=== PATIENT | male | born 1940 | race Caucasian/White ===

== ENCOUNTER 2017-04-23 13:35 | Outpatient (CLI) | payer MEDICARE, OTHER ==
[2017-04-23 14:04] LABS: APPEARANCE,URINE Clear (CLEAR); COLOR,URINE Yellow (YELLOW); OCCULT BLOOD,URINE Negative (NEGATIVE); PH URINE 5.5 (5.0 - 8.0)
[2017-04-23 14:47] LABS: eGFR (African) > 60; eGFR (Non-African) > 60
== END 2017-04-23 13:40 ==
LOC: LAB 13:35
PROVIDERS: ATTEND Family Medicine
DX: I10 Essential (primary) hypertension (principal)
CPT/HCPCS: 36415; 80048; 81002

== ENCOUNTER 2018-02-23 10:24 | Day surgery (SDC) | payer MEDICARE, OTHER ==
[~2018-02-23 10:24] MED LIST: LACTATED RINGERS 1,000 ML IV.SOLN IV ONE; LIDOCAINE HCL/PF 2% 100 MG/5 ML VIAL IJ ONE; PROPOFOL 500 MG/50 ML VIAL IV ONE; SALINE FLUSH 10 ML DISP.SYRIN IVF ONE
--- NOTE | 2018-02-24 14:33 | GI Report ---
REFERRING PHYSICIAN: Dr. Karma Mathew ENVIRONMENTAL SERVICES AIDE: Enmanuel Mancuso MD PROCEDURE MEDICATION: Propofol as per anesthesia. INDICATIONS: Patient is a 77-year-old man who is referred for his first screening colonoscopy. Brother had colon cancer. Patient denies any change in bowel habits or bleeding. He has been stable cardiopulmonary alejandre. He does have hypertension. PROCEDURE PERFORMED: Colonoscopy. PROCEDURE: An Olympus video colonoscope was advanced to the rectum and advanced all the way to the cecum. The appendiceal orifice and terminal ileum were normal. On slow withdrawal, the cecum, ascending colon, and transverse colon with no obvious intraluminal lesions noted. The descending colon and sigmoid with some redundancy, but no obvious intraluminal lesions were noted. Retroflexion of the rectum was normal. Patient tolerated the procedure well. FINDINGS: Normal mucosa to the cecum. RECOMMENDATIONS: 1. A high-fiber diet. 2. With a family history of a first-degree relative with colon cancer, consider re-looking at his colon in 5 years. cc: Dr. Karma MILLER
== END 2018-02-23 10:25 ==
LOC: OPSURG 10:24
PROVIDERS: ATTEND Internal Medicine Gastroenterology
DX: Z12.11 Encounter for screening for malignant neoplasm of colon (principal); Z80.0 Family history of malignant neoplasm of digestive organs; I10 Essential (primary) hypertension
CPT/HCPCS: G0105; J2001; J2704; J7120; S1016

== ENCOUNTER 2018-12-21 13:46 | Emergency (ER) | payer MEDICARE, OTHER ==
[2018-12-21] MEDS: 0.9 % SODIUM CHLORIDE 1,000 ML IV ONE ×2 (14:25→15:30)
--- NOTE | 2018-12-21 14:38 | ED Physician Documentation ---
Dizziness - HISTORIAN Historian: patient - HPI Chief Complaint: Dizziness Timing: gradual onset Severity: mild Decreased Ability to Stand/ Walk: off balance Usually: walks w/o assistance Further Comments: yes (78 year old male patient presents with complaints of dizziness. Patient reports diarrhea for the past few days, c/o vomiting x2 yesterday. No vomiting today, diarrhea x 2 today. Denies SOB or chest pain.) - ROS CONST: none EYES/ENT: none GI/: diarrhea. denies: abdominal pain, black stools LNMP: irregualar periods MS/SKIN/LYMPH: none NEURO/PSYCH: none CVS/RESP: none - PAST HX Past History: hypertension Allergies/Adverse Reactions: Allergies Allergy/AdvReac Type Severity Reaction Status Date / Time Penicillins Allergy Unknown Verified 12/21/18 14:44 Sulfa (Sulfonamide Allergy Unknown Verified 12/21/18 14:44 Antibiotics) Home Medications: Ambulatory Orders Medication Instructions Recorded Cyanocobalamin (Vitamin B-12) 1,000 mcg PO DAILY 08/10/12 [Vitamin B-12] - SOCIAL HX Smoking History: non-smoker - FAMILY HX Family History: denies: none - REVIEWED ASSESSMENTS Nursing Assessment Reviewed: Yes Vitals Reviewed: Yes Progress - Progress Progress: Dizziness resolved after IV fluids. Old records reviewed. Bradycardia noted. No previous EKG; BP stable with MAIA. ED Results Lab/Radiology - Orders Orders: ED Orders Category Date Time Status Continuous EKG monitoring Q30M Care 12/21/18 14:10 Active Continuous Pulse Oximetry Q30M Care 12/21/18 14:[address] IV Lock 1T Care 12/21/18 14:09 Active CBC/PLATELET/DIFF Stat Lab 12/21/18 14:09 Ordered CMP Stat Lab 12/21/18 14:09 Ordered TROPONIN I Stat Lab 12/21/18 14:09 Ordered UA W/MICRO IF INDICATED Stat Lab 12/21/18 14:09 Ordered 0.9 % Sodium Chloride [Normal Saline] 1,000 ml Med 12/21/18 14:09 Discontinued IV NOW EKG WITH COMPARISON Stat Ther 12/21/18 14:09 Ordered Dizziness Physical Exam - Physical Exam General Appearance: [id number] N Respiratory: no respiratory distress, breath sounds nml, chest non-tender CVS: reg rate & rhythm, heart sounds normal, equal pulses, no murmur, no gallop, PMI nml, no JVD, no friction rub, 24 Abdomen: soft, no organomegaly, normal bowel sounds, no abdominal bruit, no distension. No: McBurney's point tenderne, rebound, distended, Rovsing's sign Skin: normal color, warm/dry, NR, INT, PAL, DR Neuro: nml orientation, nml speech, nml cognition, mood/affect nml Extremities: non-tender, normal range of motion, no evidence of injury, no edema, J, PER DIEM RN Cranial: no evidence of acute CVA Sensorimotor: motor nml Discharge Clincal Impression: Dizziness Diarrhea Qualifiers: Diarrhea type: unspecified type Qualified Code(s): R19.7 - Diarrhea, unspecified Referrals: Karma Mathew MD [Primary Care Provider] - 2 Days Additional Instructions: Over the counter imodium as needed for diarrhea. Follow package directions. Diet: Clear liquids Sprite/7-up Juices apple, white grape Gatorade/Powerade Jello Popsicles When tolerating clear liquids, advance to bland/brat diet - such as crackers, rice, Bananas, apples/applesauce or toast. Advance diet as tolerated when vomiting and diarrhea have resolved Return to the emergency department or call your doctor, if you are having severe abdominal pain, fever >101.0, or if there is blood in the vomit or diarrhea, or you cannot keep down liquids or solid Follow up with Dr Mathew this week. Condition: Stable Disposition: 01 HOME, SELF-CARE Decision to Admit: NO Decision Time: 15:32
[2018-12-21 14:47] LABS: BASOPHILS % 0.5 % (0.0-1.5); NEUTROPHILS # 6.2 # k/uL (1.4-7.7)
[2018-12-21 15:03] LABS: eGFR (Non-African) > 60
[2018-12-21 17:03] VITALS: BP 163/86
[2018-12-21 18:21] LABS: APPEARANCE,URINE CLEAR (CLEAR); COLOR,URINE YELLOW (YELLOW); OCCULT BLOOD,URINE NEGATIVE (NEGATIVE)
[2018-12-21 18:22] LABS: UROBILINOGEN URINE 0.2 Eu (0.2-1.0)
== END 2018-12-21 17:00 | disposition home or self-care (01) ==
LOC: ED 13:46
DX: R42 Dizziness and giddiness (principal); R19.7 Diarrhea, unspecified
CPT/HCPCS: 36415; 80053; 81002; 84484; 85025; 93005; 99283; 99284; J7030; S1016